=== PATIENT | male | born 1955 | race Caucasian/White ===

== ENCOUNTER 2025-08-01 18:35 | Emergency (ER) | payer MEDICARE ==
[2025-08-01] MEDS ORDERED: Lidocaine/Epineph/Tetracaine 3 ML Syringe TOP ONE (18:38)
== END 2025-08-01 19:38 | disposition home or self-care (01) ==
LOC: FB.ED 18:35 → MERGE 18:35 → FB.ED 19:30
DX: S61.211A Laceration without foreign body of left index finger without damage to nail, initial encounter (principal); W26.8XXA Contact with other sharp object(s), not elsewhere classified, initial encounter; Y93.89 Activity, other specified
CPT/HCPCS: 12001; 99282